=== PATIENT | male | born 1955 | race Caucasian/White ===

== ENCOUNTER 2020-09-17 08:22 | Inpatient (IN) | payer MEDICARE, OTHER ==
[2020-09-27 10:10] LABS: HEMATOCRIT 43.2 % (42.0-52.0); HEMOGLOBIN 14.3 g/dl (13.5-18.0); MEAN CELL VOLUME 95 fl (80.0-100.0); MEAN CORPUSCULAR HEMOGLOBIN 32 pg (27.0-31.0); MEAN CORPUSCULAR HGB CONC 33 g/dl (33.0-37.0); MEAN PLATELET VOLUME 9.5 fl (7.4-10.4); PLATELET COUNT 292 K/mm3 (130-400); RED BLOOD COUNT 4.54 M/mm3 (4.20-5.60); REDCELL DISTRIBUTION WIDTH-CV 12.8 % (11.5-14.5)
[2020-09-27 10:16] LABS: ALBUMIN 4.2 gm/dL (3.5-5.0); BILIRUBIN,TOTAL 0.8 mg/dL (0.0-1.0); CALCIUM 9.2 mg/dL (8.4-10.2); CREATININE, serum 0.89 (0.66-1.25); POTASSIUM 4.5 mmol/L (3.4-5.0); TOTAL PROTEIN 7.5 gm/dL (6.4-8.2)
[2020-09-28] VITALS (11 sets, daily range): BP systolic 125–152; BP diastolic 53–79; PULSE 59–74; TEMP 97.9–98.3
[2020-09-28] MEDS ORDERED: VISION VITAMINS1 TA1 PO (05:43)
[2020-09-28] MEDS ORDERED: GLUCOSAMINE & C1 CA2 PO (05:43)
[2020-09-28] MEDS ORDERED: ONE-A-DAY ESSE1 EACH PO (05:44)
[2020-09-28] MEDS ORDERED: MEN'S ONE DAIL1 EACH PO (05:44)
--- NOTE | 2020-09-28 06:00 | NUR ---
The patient ambulated back to [place] [address] independently using a steady gait and appeared to tolerate the activity well. Vital signs obtained. Consent signed. 18G IV started in left hand with one stick, LR infusing without difficulty. Blood obtained from IV start for lab as ordered. Call light is within reach. The patient denies any further needs at this time. Will continue to monitor the patient.
--- NOTE | 2020-09-28 12:10 | NUR ---
Patient received post op from [facility] in [place]. Patient drowsy. Vss on O2. Simmons to JM. Ifeanyi to bulb compression. Robotic sites edges well approximated. Scds ble. Will montior closely.
--- NOTE | 2020-09-28 13:40 | NUR ---
Post op vitals stable. Patient educated on ERAS protocol. Tolerating ice chips. Simmons to DD with adequate light red output.
--- NOTE | 2020-09-28 16:21 | NUR ---
Patient up to the chair. One assist with gaitbelt. He felt lightheaded. Patient sat in chair & then vomited. Zofran Prn given as well as scheduled tylenol. Cool rag provided or his forehead.
--- NOTE | 2020-09-28 19:21 | NUR ---
Patient up and ambulated halls. Steady gait, not light headed or dizzy. Simmons to DD. IVF per orders. MIGUEL drain to compression with no drainage in the bulb. Bedside report to night nurse
--- NOTE | 2020-09-28 21:45 | NUR ---
Pt. sitting up in chair at this time. Pt. is A&OX3, assessment complete. INT and IV to rt. hand patent. Simmons catheter to DD, red-tinged urine noted. MIGUEL to lt. abd. with gauze dressing CDI. Minimal drainage noted. Pt. denies further needs, call light within reach.
[2020-09-29 04:25] VITALS: BP 109/53; PULSE 70; TEMP 98.5
[2020-09-29 06:28] LABS: CALCIUM 8.7 mg/dL (8.4-10.2); CREATININE, serum 1.12 (0.66-1.25); POTASSIUM 4.2 mmol/L (3.4-5.0)
[2020-09-29 06:32] LABS: HEMATOCRIT 36.4 % (42.0-52.0); HEMOGLOBIN 12.2 g/dl (13.5-18.0)
[2020-09-29 07:08] VITALS: BP 105/46; PULSE 66; TEMP 98.6
[2020-09-29 11:05] VITALS: BP 114/51; PULSE 61; TEMP 98.4
--- NOTE | 2020-09-29 11:30 | NUR ---
MIGUEL drain discontinued as ordered. Patient tolerated well. There was no output from the drain prior to removing drain. No complaints of pain. Fluids stopped as well. Patient is going to go for a walk. He denies nausea. stated having some gas pain. Incisions to abdomen are well approximated, no drainage, slight bruising. Gauze dressing placed to MIGUEL site. Urine is yellow and clear. No other changes at this time. Call light within reach.
--- NOTE | 2020-09-29 14:30 | NUR ---
Plan to return home to [place] with Hailee . Patient reports that he resides in [place]. DPOA is . Patient reports that his PCP is Dr. Orteag Araujo in [place] and uses [facility] for RX. Patient reports that use of [facility] but no other DME use. Patient denies any need for additional services. Educated on services. Will continue to follow.
--- NOTE | 2020-09-29 15:00 | NUR ---
Patient is discharging home. Discharge instructions discussed with patient. No questions verbalized. INT discontinued. Explained to clean reyna and care for it. Explained how to empty reyna bag. Discussed how to switch and use the leg bag if needed. He has a follow up appointment scheduled already. Dr Hernandez told patient to take tylenol and motrin for pain at home, so no prescriptions to give. Copies of discharge instructions sent with patient. All belongings packed up by patient. Patients will be here around 1600.
== END 2020-09-29 16:00 | disposition home or self-care (01) | DRG 708 ==
LOC: INPTSU 09-28 05:17 → SURG 09-28 07:30
PROVIDERS: ADMIT Urology
PROC: 07TC4ZZ Resection of Pelvis Lymphatic, Percutaneous Endoscopic Approach (ICD-10-PCS; 2020-09-28)
PROC: 8E0W4CZ Robotic Assisted Procedure of Trunk Region, Percutaneous Endoscopic Approach (ICD-10-PCS; 2020-09-28)
PROC: 0VT04ZZ Resection of Prostate, Percutaneous Endoscopic Approach (ICD-10-PCS; principal; 2020-09-28 07:30)
DX: C61 Malignant neoplasm of prostate (principal); E78.5 Hyperlipidemia, unspecified; I10 Essential (primary) hypertension; G47.33 Obstructive sleep apnea (adult) (pediatric); Z80.42 Family history of malignant neoplasm of prostate
CPT/HCPCS: A4314; A9284; J0690; J1100; J1885; J2250; J2405; J2704; J3010; J7120